=== PATIENT | female | born 1995 | race Hispanic/Latino ===

== ENCOUNTER 2016-12-12 19:37 | Emergency (ER) | payer OTHER ==
[~2016-12-12] VITALS: Ht 152.4 cm; Wt 58.0 kg
[2016-12-12 19:57] VITALS: BP 139/90; PULSE 116; RESP 18; O2SAT 100
--- NOTE | 2016-12-12 20:23 | ED.REPORT ---
HPI-Abd Pain F Under 40 Date of Service Dec 12, 2016 ED Provider: Leonard Kerr DO 21 year old female with a history of appendectomy and ovarian cysts presents to the ER accompanied by her fiance complaining of low abdominal pain onset this morning. Associated symptom of dizziness. Patient denies fever, nausea, vomiting , and diarrhea. She has an IUD. Nursing Notes Stated Complaint: ABDOMINAL PAIN Chief Complaint: Female Abdominal Pain Nursing Notes Reviewed: Yes Allergies: Coded Allergies: No Known Allergies (Unverified , 12/12/16) General Time Seen by MD: 20:23 Chief Complaint Abdominal pain Hx Obtained From: Patient Arrived By: Walk-in Sudden in Onset?: No Onset Occurred: 9 - 12 hours ago Symptom Duration: Since onset Location: : Abdomen lower Quality: Painful Severity: Current: Moderate Severity: Maximum: Moderate Associated with: Denies: Diarrhea, Fever, Nausea, Vomiting Pertinent Negative: Pt denies other symptoms Similar Sx Previous: Yes Past Medical History Past Medical History Ovarian cysts Past Surgical History Reports: Appendectomy Smoking History Unknown if Ever Smoker Social History Other Social History: Good social support Ambulatory Status Independent Review of Systems Constitutional: Denies: Chills, Fever Respiratory: Denies: Non-productive cough GI: Reports: Abdominal pain, Denies: Constipation, Diarrhea, Nausea, Vomiting Complete sys rev & neg: except as marked. Neurologic: Reports: Dizziness Physical Exam Initial Vital Signs Vital Signs (First) Date Time Temp Pulse Resp B/P Pulse Ox O2 Delivery O2 Flow Rate FiO2 12/12/16 19:57 36.4 116 18 139/90 100 12/12/16 23:17 Room Air Initial VS: Reviewed Head / Eyes: Atraumatic, Normocephalic Neck: Supple, Non-tender, Full range of motion Extremities: Vascular intact, Neuro intact, No swelling, No tenderness Skin: Warm, Dry, No cyanosis Neurologic: Alert, Oriented, Nonfocal Psychiatric: Mood/affect normal, Behavior normal, Normal thought content General/Constitutional: Awake, Alert, Well developed, Well nourished Respiratory / Chest: Breath sounds NL, Breath sounds = bilat, No respiratory distress, No rales, No rhonchi, No wheezing Cardiovascular: Heart rate NL, Regular rhythm, Heart sounds NL, Peripheral circulation NL Abdomen: Soft, No guarding, No rebound (/), No distention Tenderness/Guarding/Rebound: Positive: Tender RLQ... (Moderate) Interpretation & Diagnostics US ABDOMEN Initial read by clock repair technician: Small amount of free fluid near the right ovary. No signs of torsion, no signs of ruptured ectopic . Lab Results Interpretation Result Diagram: 12/12/16214912/12/162149 Test 12/12/16 20:32 12/12/16 20:34 12/12/16 21:50 Hold Urine Received (Received) Urine Color Yellow (YELLOW) Urine Appearance Clear (CLEAR,HAZY) Urine pH 6.0 (5.0-8.0) Urine Specific [place] 1.025 (1.003-1.035) Urine Protein Negativemg/dL (NEG,TRACE) Urine Glucose (UA) Negativemg/dL (NEGATIVE) Urine Ketones 40mg/dL (NEGATIVE) Urine Occult Blood Negative (NEGATIVE) Urine Nitrite Negative (NEGATIVE) Urine Bilirubin Negative (NEGATIVE) Urine Urobilinogen Normalmg/dL (NORMAL) Urine Leukocyte Esterase Negative (NEGATIVE) Urine RBC 0-2/hpf (0-2) Urine WBC 0-5/hpf (0-5) Urine Epithelial Cells Many/hpf (NONE-MOD) Urine Crystals None seen (NONE SEEN) Urine Bacteria Few/hpf (NONE-FEW) Urine Hyaline Casts None/lpf (NONE) Urine Granular Casts None seen (NONE SEEN) Urine Waxy Casts None seen (NONE SEEN) Urine Red Blood Cell Casts None seen (NONE SEEN) Urine White Blood Cell Casts None seen (NONE SEEN) Urine Mucus Present (None Seen) Urine Trichomonas None seen (NONE SEEN) Urine Yeast None (NONE SEEN) Urinalysis Comment None Urine Culture Reflexed Not indicated White Blood Count 6.5th/mm3 (3.8-10.1) Red Blood Count 4.31mil/mm3 (3.90-5.20) Hemoglobin 12.3g/dL (12.0-15.6) Hematocrit 37.4% (35.0-46.0) Mean Corpuscular Volume 86.8fL (81-100) Mean Corpuscular Hemoglobin 28.5pg (27.0-35.0) Mean Corpuscular Hemoglobin Concent 32.9% (32.0-37.0) Red Cell Distribution Width 13.1% (12.3-15.4) Platelet Count 284bil/L (150-400) Neutrophils (%) (Auto) 63.5% (40-74) Lymphocytes (%) (Auto) 27.4% (14-46) Monocytes (%) (Auto) 7.7% (4-12) Eosinophils (%) (Auto) 0.6% (0-5) Basophils (%) (Auto) 0.8% (0-3) Sodium Level 137mEq/L (134-144) Potassium Level 3.9mEq/L (3.5-5.2) Chloride Level 102mEq/L (97-108) Carbon Dioxide Level 17mmol/L (18-29) Blood Urea Nitrogen 8mg/dL (6-20) Creatinine 0.47mg/dL (0.57-1.00) Estimat Glomerular Filtration Rate 240mL/min (>59) Glucose Level 99mg/dL (60-99) Calcium Level 9.6mg/dL (8.5-10.1) Total Bilirubin 0.4mg/dL (0.0-1.2) Aspartate Amino Transf (AST/SGOT) 18U/L (0-50) Alanine Aminotransferase (ALT/SGPT) 14U/L (0-32) Alkaline Phosphatase 90U/L (25-150) Total Protein 7.5g/dL (6.4-8.4) Albumin 4.4g/dL (3.4-5.0) HCG Beta Subunit 0.500mIU/mL Hold Lawrence Top Tube Received (Received) Re-Eval/Medical Decision Med Decision/Clinical Course Torsion ruled out. Her appendix has been removed so this too was ruled out. She has no vaginal discharge so PID seems unlikely. I suspect that she is ruptured ovarian cyst. As such we will treat her symptomatically. I did send urine testing out for GEN probe. She will follow up. Routine aftercare and opiate warnings were given. Source of Hx: Old records Re-Evaluation/Progress : Time of Eval: 23:04 Re-Evaluation/Progress Note: Discussed lab and imaging results and plan to discharge. Patient is amenable to the plan. Return precautions given. All other questions addressed. Counseled Regarding: Diagnosis, Lab results, Need for follow-up, When/why to return to ED Discharge & Departure Primary Impression: Ruptured ovarian cyst Disposition: Home Discharge Condition All VS Reviewed: Yes Condition: Stable Patient Instructions: Ovarian Cyst (DC) Additional Instructions: Your ultrasound showed that you probably ruptured an ovarian cyst. Take 1-2 [place] every 6 hours as needed for pain. Do not drive, drink alcohol, or consume acetaminophen while taking [place]. Take Zofran every hour as needed for nausea. We are sending your urine out for testing. Please follow-up with your primary care provider next week. Return to the ER if you develop any worsening or concerning symptoms. Referrals: Edwin Robison MD (PCP) Wendy Attestation Portions of this note were transcribed by Aquiles Galindo. I, Dr. Kerr, personally performed the history, physical exam and medical decision-making; I reviewed and confirmed the accuracy of the information in the transcribed note. Signed by: Wendy Spring, 12/12/2016 at 23:07 copies to: Edwin Robison MD, Todd P DO Dec 12, 2016 20:23 AQUILES GALINDO Dec 12, 2016 21:45
[2016-12-12 21:03] LABS: APPEARANCE,URINE CLEAR (CLEAR,HAZY); COLOR,URINE YELLOW (YELLOW); OCCULT BLOOD,URINE NEGATIVE (NEGATIVE); UROBILINOGEN,URINE NORMAL (NORMAL)
[2016-12-12] MEDS ORDERED: Ondansetron 2 mg/mL 2 mL Inj IVPUSH PRN (21:45)
[2016-12-12] MEDS ORDERED: HYDROmorphone 0.5 mg/0.5 mL iSecure Syringe IVPUSH PRN (21:45)
[2016-12-12 22:00] LABS: BASOPHILS % (AUTO) 0.8 % (0-3); EOSINOPHILS % (AUTO) 0.6 % (0-5); MONOCYTES % (AUTO) 7.7 % (4-12); Mean Corpuscular Hemoglobin 28.5 pg (27.0-35.0); Mean Corpuscular Volume 86.8 fL (81-100); NEUTROPHILS % (AUTO) 63.5 % (40-74); Platelet Count 284 bil/L (150-400)
[2016-12-12] MEDS ORDERED: _Ondansetron ODT 4 mg Tablet PO PRN (22:40)
[2016-12-12] MEDS ORDERED: _HYDROcodone/APAP 5-325 mg Tablet PO PRN (22:40)
[2016-12-12 23:17] VITALS: BP 125/91; PULSE 94; RESP 16; O2SAT 99
--- NOTE | 2016-12-13 08:43 | DRSVH ---
PROCEDURE: US PELVIC SONOGRAM WITH TRANSVAG AND DOPPLER INDICATIONS: RLQ and right pelvic pain TECHNIQUE: Real-time scanning was performed of the pelvic organs, with image documentation. Additional endovagi nal scanning was necessary due to incomplete visualization of the adnexal and endometrial structures by transabdominal scanning. COMPARISON: None. FINDINGS: (orthogonal measurements) Uterus size: 6.21 cm, 3.16 cm Endometrium thickness: 5.30 mm Right ovary size: 2.45 cm, 1.49 cm, 2.23 cm Left ovary size: 2.79 cm, 1.80 cm, 1.85 cm Transabdominal scanning: Limited scanning through the kidneys shows no hydronephrosis. No pathologi c free abdominal or pelvic fluid. Endovaginal scanning: Uterus: Uterus is normal in size and appearance. Endometrium is within normal physiologic limits. Intrauterine device present in expected position. Ovaries: Within normal physiologic limits. Mild amount of nonhemorrhagic free fluid adjacent to the right ovary. IMPRESSION: Small amount of nonhemorrhagic free fluid adjacent to the right ovary otherwise normal ex amination. Note: These findings are concordant with the preliminary interpretation. Dictated by: Ivan Hagan [facility] Interpreted: Grace Nichole MD on 12/13/2016 at 8:41 Transcribed by: SAMANTA on 12/13/2016 at 8:42 Approved by: Grace Nichole MD, PhD on 12/13/2016 at 16:42
== END 2016-12-12 23:18 | disposition home or self-care (01) ==
LOC: SED 19:37
DX: N83.201 Unspecified ovarian cyst, right side (principal); R42 Dizziness and giddiness
CPT/HCPCS: 36415; 76830; 76856; 80053; 81000; 81025; 84702; 85025; 87491; 87591; 93975; 96374; 96375; 99285; J1170; J2405

== ENCOUNTER 2017-03-14 00:10 | Emergency (ER) | payer OTHER ==
[~2017-03-14] VITALS: Ht 152.4 cm; Wt 59.1 kg
[2017-03-14 00:16] VITALS: BP 136/96; PULSE 80; RESP 16; O2SAT 99
[2017-03-14 00:47] LABS: BASOPHILS % (AUTO) 0.5 % (0-3); EOSINOPHILS % (AUTO) 3.3 % (0-5); Mean Corpuscular Hemoglobin 28.9 pg (27.0-35.0); Mean Corpuscular Volume 86.7 fL (81-100); NEUTROPHILS % (AUTO) 48.5 % (40-74); Platelet Count 264 bil/L (150-400)
--- NOTE | 2017-03-14 01:10 | ED.REPORT ---
HPI-Abd Pain F Under 40 Date of Service Mar 14, 2017 ED Provider: Vince Snyder MD Pt is a 21 year old female with a history of ovarian cysts and appendectomy who presents to the ED complaining of sharp right inguinal pain onset prior to arrival. She c/o associated lower back pain. She denies radiation, dysuria, nausea, vomiting, and diarrhea. Pt reports that she had an IUD removed last month, so she is unsure if she is . Nursing Notes Stated Complaint: LRQ PAIN Chief Complaint: Female Abdominal Pain Nursing Notes Reviewed: Yes Allergies: Coded Allergies: No Known Allergies (Unverified , 12/12/16) General Time Seen by MD: 01:09 Chief Complaint Inguinal pain right Hx Obtained From: Patient Arrived By: Walk-in Sudden in Onset?: Yes Onset Occurred: Just prior to arrival Symptom Duration: Since onset Quality: Painful, Sharp Severity: Current: Moderate Severity: Maximum: Moderate Recent Healthcare: No recent doctor visit, No recent hospitalization Similar Sx Previous: Yes Past Medical History Past Medical History Ovarian cysts Past Surgical History Reports: Appendectomy Smoking History Unknown if Ever Smoker Social History Engaged Alcohol Use: Denies alcohol use Drug Use: Denies drug use Other Social History: Good social support Ambulatory Status Independent Review of Systems GI: Reports: Abdominal pain (inguinal), Denies: Diarrhea, Nausea, Vomiting Female: Denies: Dysuria, Flank pain Musculoskeletal: Reports: Back pain Complete sys rev & neg: except as marked. Physical Exam Initial Vital Signs Vital Signs (First) Date Time Temp Pulse Resp B/P Pulse Ox O2 Delivery O2 Flow Rate FiO2 03/14/17 00:16 37.4 80 16 136/96 99 Room Air Initial VS: Reviewed, Vital signs abnormal Head / Eyes: Atraumatic, Normocephalic Neck: Supple, Full range of motion Extremities: Vascular intact, Neuro intact Skin: Warm, Dry, No cyanosis Neurologic: Alert, Oriented, Nonfocal Psychiatric: Mood/affect normal, Behavior normal General/Constitutional: Awake, Alert, Cooperative Respiratory / Chest: Atraumatic, Breath sounds NL, Breath sounds = bilat Cardiovascular: Heart rate NL, Regular rhythm, Heart sounds NL Abdomen: Atraumatic, Soft, Non-tender Area of tenderness in inguinal ligament; no bulge or mass. Back: Atraumatic, Full range of motion, No CVA tenderness Interpretation & Diagnostics Lab Results Interpretation Result Diagram: 03/14/17 0040 03/14/17 0040 Test 03/14/17 00:40 03/14/17 01:20 White Blood Count 7.7th/mm3 (3.8-10.1) Red Blood Count 4.36mil/mm3 (3.90-5.20) Hemoglobin 12.6g/dL (12.0-15.6) Hematocrit 37.8% (35.0-46.0) Mean Corpuscular Volume 86.7fL (81-100) Mean Corpuscular Hemoglobin 28.9pg (27.0-35.0) Mean Corpuscular Hemoglobin Concent 33.3% (32.0-37.0) Red Cell Distribution Width 13.8% (12.3-15.4) Platelet Count 264bil/L (150-400) Neutrophils (%) (Auto) 48.5% (40-74) Lymphocytes (%) (Auto) 41.6% (14-46) Monocytes (%) (Auto) 6.0% (4-12) Eosinophils (%) (Auto) 3.3% (0-5) Basophils (%) (Auto) 0.5% (0-3) Sodium Level 139mEq/L (134-144) Potassium Level 3.9mEq/L (3.5-5.2) Chloride Level 103mEq/L (97-108) Carbon Dioxide Level 22mmol/L (18-29) Blood Urea Nitrogen 8mg/dL (6-20) Creatinine 0.49mg/dL (0.57-1.00) Estimat Glomerular Filtration Rate 228mL/min (>59) Glucose Level 121mg/dL (60-99) Calcium Level 9.3mg/dL (8.5-10.1) Magnesium Level 2.0mg/dL (1.6-2.6) Total Bilirubin 0.2mg/dL (0.0-1.2) Aspartate Amino Transf (AST/SGOT) 23U/L (0-50) Alanine Aminotransferase (ALT/SGPT) 18U/L (0-32) Alkaline Phosphatase 79U/L (25-150) Total Protein 7.3g/dL (6.4-8.4) Albumin 4.2g/dL (3.4-5.0) Lipase 33U/L (13-60) Hold Lawrence Top Tube Received (Received) Hold Urine Received (Received) Lab values outside NL range: no clinical significance. Re-Eval/Medical Decision Med Decision/Clinical Course 21-year-old female who presents with right inguinal area pain. She states this is the same when she has had a previous ruptured ovarian cyst. Her abdomen is soft and nontender. Her labs are normal including negative UA and negative test. I see no indication at this time for imaging. She will follow up with her primary doctor as needed for worsening symptoms or return to the emergency room. Tylenol and/or ibuprofen as needed for pain. Source of Hx: Old records Re-Evaluation/Progress : Time of Eval: 01:31 Re-Evaluation/Progress Note: Pt rechecked. Informed pt of results and plan for discharge. Pt understands and agrees with plan for discharge. F/U instructions and RTER warnings given. All questions addressed. Counseled Regarding: Diagnosis, Lab results, Need for follow-up, When/why to return to ED Discharge & Departure Primary Impression: Right inguinal pain Disposition: Home Discharge Condition All VS Reviewed: Yes Condition: Stable Patient Instructions: Ovarian Cyst (ED) Additional Instructions: With your history of ruptured ovarian cysts, it is likely that is what is causing you are pain now. However it is in the area where it could be related to an inguinal strain or hernia. Your labs are normal. You are not . Tylenol and/or ibuprofen as needed for pain. If it continues to bother you follow up with your primary doctor. Contact your insurance company to be reassigned a new primary doctor. Referrals: [facility] Wendy Attestation Portions of this note were transcribed by Deepa Guerrero. I, Dr. Snyder personally performed the history, physical exam and medical decision-making; I reviewed and confirmed the accuracy of the information in the transcribed note. Signed by: Wendy Ayers, 03/14/17 and 02:30. copies to: [facility] Vince Snyder MD Mar 14, 2017 01:10 Deepa Santiago Mar 14, 2017 01:18
[2017-03-14 02:23] VITALS: BP 128/89; PULSE 81; RESP 18; O2SAT 99
== END 2017-03-14 02:17 | disposition home or self-care (01) ==
LOC: AIC 00:10
DX: R10.31 Right lower quadrant pain (principal)